=== PATIENT | male | born 1980 | race Two or more races ===

== ENCOUNTER 2017-01-30 18:24 | Emergency (ER) | payer OTHER ==
[~2017-01-30] VITALS: Ht 175.3 cm; Wt 81.6 kg
[2017-01-30 18:52] VITALS: BP 123/79
--- NOTE | 2017-01-30 19:29 | Emergency Room Report ---
History of Present Illness General Chief Complaint: Behavioral Complaint Source: Patient Present Illness HPI 36 YOU Male presents to the ED c/o increased paranoid ideations with exacerbation of his insomnia after running out of his medication. Pt. takes Valium for which he has been out of for 10 days, with insomnia symptoms x 2 days. pt. reports paranoid ideations and not wanting to leave the house due to fear/paranoia. pt. is unable to afford medication refill appts. with his previous psychiatrist and is requesting referral. Denies CP, Palpitations, LOC, AMS, dizziness, Changes in Vision, Sensation, paresthesias, or a sudden severe headache. Allergies: Coded Allergies: No Known Allergies (Unverified , 01/30/17) Patient History Past Medical History: see triage record Past Surgical History: none Pertinent Family History: none Immunizations: UTD Reviewed Nursing Documentation: PMH: Agreed, PSxH: Agreed Nursing Documentation-PMH Past Medical History: No History, Except For Hx Asthma: Yes History Of Psychiatric Problem: Yes - schizoaffective d/o, OCD Review of Systems All Other Systems: negative except mentioned in HPI Physical Exam Vital Signs Date Time Temp Pulse Resp B/P Pulse Ox O2 Delivery O2 Flow Rate FiO2 01/30/17 18:42 98.1 80 18 123/79 98 Room Air Medical Decision Making PA Attestation Dr. Sosa is my supervising Physician whom patient management has been discussed with. Diagnostic Impression: Primary Impression: Medication refill Additional Impression: Paranoid ideation ER Course Pt. presents to the ED c/o increased paranoid ideations with exacerbation of his insomnia after running out of his medication. Pt. takes Valium for which he has been out of for 10 days, with insomnia symptoms x 2 days. pt. reports paranoid ideations and not wanting to leave the house due to fear/paranoia. Ddx considered but are not limited to OD, SI/HI, psychosis, UTI, intoxication Vital signs: are WNL, pt. is afebrile H&PE are most consistent with need for medication refill and follow up resources. Pt. denies SI or HI. ORDERS: -none required at this time, the diagnosis is clinical ED INTERVENTIONS: - none required at this time. - D/w pt. and mother about [facility], and also gave [place] flyer with information to pt's mother. DISCHARGE: At this time pt. is stable for d/c to home with mother, pt. to follow up at [facility]. Will provide printed patient care instructions, and any necessary prescriptions. Care plan and follow up instructions have been discussed with the patient prior to discharge. Last Vital Signs Date Time Temp Pulse Resp B/P Pulse Ox O2 Delivery O2 Flow Rate FiO2 01/30/17 18:52 98.1 18 123/79 98 Room Air 01/30/17 18:42 80 Disposition: HOME, SELF-CARE Condition: Stable Scripts Diazepam* (VALIUM*) 5 Mg Tablet 5 MG ORAL QHS Y for ANXIETY, #3 TAB 0 Refills Prov: Mehreen Cuevas 01/30/17 Ziprasidone Hcl (GEODON) 60 Mg Capsule 60 MG PO BID, #20 CAP Prov: Mehreen Cuevas 01/30/17 Patient Instructions: Medicine Refill at the Emergency Department Additional Instructions: Take medications as directed. Follow up with [facility] within 48 hours Return sooner to ED if new symptoms occur, or current symptoms become worse. Do not drink alcohol, drive, or operate heavy machinery while taking Valium as this may cause drowsiness. - Please note that this Emergency Department Report was dictated using [employer] software, occasionally this can lead to erroneous entry secondary to interpretation by the dictation equipment. Mehreen Cuevas Jan 30, 2017 19:29
[2017-01-30] MEDS ORDERED: GEODON60 MG PO (19:33)
[2017-01-30] MEDS ORDERED: VALIUM5 MG ORAL (19:33)
[2017-01-30 19:38] VITALS: BP 123/79
== END 2017-01-30 19:38 | disposition home or self-care (01) ==
LOC: EMR 19:26
DX: F22 Delusional disorders (principal); G47.00 Insomnia, unspecified; J45.909 Unspecified asthma, uncomplicated
CPT/HCPCS: 99284